=== PATIENT | male | born 1985 | race Caucasian/White ===

== ENCOUNTER 2025-01-05 16:45 | Emergency (ER) | payer OTHER ==
[~2025-01-05] VITALS: Ht 180.3 cm; Wt 102.1 kg
[2025-01-05 17:58] LABS: BASOPHILS ABSOLUTE AUTO 0.08 K/mm3 (0.00-0.23); BASOPHILS PERCENT AUTO 1 % (0-2); EOSINOPHILS ABSOLUTE AUTO 0.26 K/mm3 (0.00-0.68); EOSINOPHILS PERCENT AUTO 3 % (0-6); Hematocrit 45.7 % (37.0-53.0); Hemoglobin 15.8 g/dL (13.5-17.5); IMMATURE GRAN ABSOLUTE AUTO 0.03 K/mm3 (0.00-0.10); IMMATURE GRAN PERCENT AUTO 0 % (0-1); LYMPHOCYTES PERCENT AUTO 27 % (21-46); MONOCYTES ABSOLUTE AUTO 1.17 K/mm3 (0.16-1.47); MONOCYTES PERCENT AUTO 13 % (4-13); Mean Corpuscular HGB 30.6 pg (26.0-34.0); Mean Corpuscular HGB Conc 34.6 g/dL (31.5-36.5); Mean Corpuscular Volume 89 fL (80-100); Mean Platelet Volume 9.8 fL (9.1-12.4); NEUTROPHILS ABSOLUTE AUTO 5.06 K/mm3 (1.96-9.15); NEUTROPHILS PERCENT AUTO 56 % (41-73); Platelet Count 253 K/mm3 (150-400); RDW Coefficient Variation 12.3 % (11.7-14.2); RDW Standard Deviation 40.1 fL (35.1-46.3); Red Blood Cell Count 5.16 M/mm3 (4.30-5.90)
[2025-01-05 18:11] LABS: Albumin, Blood 4.3 g/dL (3.4-5.0); Albumin/Globulin Ratio 1.5 (0.8-1.8); Bilirubin, Total 0.6 mg/dL (0.1-1.0); Bun/Creatinine Ratio 20.9 (12.0-20.0); Creatinine, Blood 0.76 mg/dL (0.60-1.20); Globulin, Blood 2.9 g/dL (2.2-4.0); Total Protein, Blood 7.2 g/dL (6.4-8.2)
[2025-01-05] MEDS ORDERED: Clopidogrel Bisulfate 75 MG Tab PO ONE (19:55)
[2025-01-05] MEDS ORDERED: Aspirin 325 MG Tab PO ONE (19:55)
[2025-01-05] MEDS ORDERED: ASPI81CH PO ×2 (20:02→20:03)
[2025-01-05] MEDS ORDERED: CLOP75 PO ×2 (20:02→20:03)
[2025-01-05] MEDS ORDERED: Clopidogrel Bisulfate 75 MG Tab ONE (20:17)
== END 2025-01-05 20:18 | disposition home or self-care (01) ==
LOC: ER 16:45
PROVIDERS: Student in an Organized Health Care Education/Training Program
DX: H34.9 Unspecified retinal vascular occlusion (principal)
CPT/HCPCS: 70496; 70498; 80053; 85025; 93005; 93010; 99284-25; A9270; Q9967